=== PATIENT | male | born 1980 | race Caucasian/White ===

== ENCOUNTER 2019-01-07 17:42 | Inpatient (IN) | payer MEDICAID, SELFPAY ==
[2019-01-07 17:43] VITALS: BP 149/88; PULSE 76; RESP 18; TEMP 36.6; O2SAT 100; BMI 23.6
[2019-01-07 19:27] LABS: Basophil# 0.04 X10^3/uL; Basophil% 0.7 % (0-1); Eosinophil# 0.28 X10^3/uL; Hemoglobin 13.4 g/dl (13.0-16.5); Lymphocyte % 28.3 % (19-41); Mean Corp Hgb Conc 33.5 g/gl (32-36); Mean Corpuscular Volume 92.6 fL (80-94); Mean Platelet Vol. 9.7 fl (6.2-12.0); Monocyte# 0.69 X10^3/uL; Monocyte% 12.2 % (0-10); Neutrophil # 3.03 X10^3/uL (2.7-7.7); Neutrophil % 53.6 % (47-70); Platelet Count 233 K/mm3 (150-450); RBC Distribution Width CV 12.8 % (11.6-14.6); RBC Distribution Width SD 42.6 fl (35.1-43.9); Red Blood Count 4.32 M/mm3 (4.6-6.2); White Blood Count 5.7 K/mm3 (4.4-11.0)
[2019-01-07 19:30] LABS: POSITIVE COUNT NO; POSITIVE DIFFERENTIAL NO; POSITIVE MORPHOLOGY NO
[2019-01-07 19:35] LABS: Amphetamine Urine VISTA NEGATIVE (<1000 ng/mL); Barbiturate Urine VISTA NEGATIVE (< 200 ng/mL); Benzodiazepine Urine VISTA NEGATIVE (< 200 ng/mL); Cocaine Urine VISTA POSITIVE (< 300 ng/mL); Ecstacy Urine VISTA NEGATIVE (< 500 ng/mL); Methadone Urine VISTA NEGATIVE (< 300 ng/mL); PCP Urine VISTA NEGATIVE (< 25 ng/mL); THC Urine VISTA NEGATIVE (< 50 ng/mL); Vista UDS pH Range 7
[2019-01-07 19:37] LABS: ALB/GLOB Ratio 1.1 RATIO (0.9-2.4); AST(SGOT) 36 U/L (15-37); Alanine Aminotransfer ALT/SGPT 29 U/L (16-61); Albumin, Serum 3.8 g/dL (3.2-5.0); Alkaline Phosphatase 61 U/L (45-117); Anion Gap 8 (5-15); BUN 17 mg/dL (7-18); Calcium,Total 8.8 mg/dL (8.5-10.1); Chloride 104 mmol/L (98-107); Creatinine, Serum 0.94 mg/dL (0.70-1.30); EST Glomerular Filtration Rate 94 mL/min (>60); Est Glom Filt Rate - Afr Amer 114 mL/min (>60); Globulin 3.6 g/dL (2.2-4.2); Glucose 68 mg/dL (74-106); Potassium 3.6 mmol/L (3.5-5.1); Protein, Total 7.4 g/dL (6.4-8.2); Sodium Level 142 mmol/L (136-145)
[2019-01-07 21:12] VITALS: BP 144/82; PULSE 76; RESP 21; O2SAT 99
--- NOTE | 2019-01-07 21:45 | HP.PCM_ITS ---
Problem List (1) Opioid withdrawal Status: Acute History of Present Illness Date of Admission: 01/07/19 Chief Complaint: withdrawal symptoms The patient is a 38 year old M with a significant history of tobacco abuse; alcohol dependence who presented to the emergency department feeling that he is going through opioid withdrawal. Patient uses heroin and fentanyl. Reportedly he snorts and does not inject. Patient uses about 1-2 g daily. His last use was a day before presentation. He called the [facility] and he was accepted in to it. Subsequently he came to the emergency department. At the emergency department his CINA score was 15. Patient reported symptoms as sneezing; yawing; no body aches; abdominal pain; diaphoresis; chills; and watery eyes. He reported that about 2 years ago he went to an opioid withdrawal program at [facility]. Past Medical History Medical History: Medical History (Last Reviewed 01/08/19 @ 04:49 by Tony Umana MD) Opioid abuse F11.10 Allergies No Known Allergies Allergy (Verified 01/07/19 17:43) Home Medications: Ambulatory Orders Medication Instructions Recorded NK 01/07/19 Surgical History: herniorrhaphy, tonsillectomy Lives: With Family Smoking Status: Current every day smoker Tobacco Use: Cigarettes Alcohol: None Review of Systems Constitutional: Reports: Chills, Malaise, Fatigue. Denies: Fever, Weight Change Eyes: Reports: Drainage HEENT: Denies: Sinus Congestion, Sinus Drainage Cardiovascular: Denies: Chest Pain, Palpitations Respiratory: Denies: Cough, Shortness of breath at rest, Sputum production Gastrointestinal: Reports: Abdominal Pain. Denies: Nausea, Vomiting Genitourinary: Denies: Dysuria Musculoskeletal: Reports: Muscle pain Skin: Denies: Rash, Wounds Neurological: Denies: Numbness, Tingling, Focal weakness Psychiatric: Reports: Anxiety. Denies: Depression, Homicidal Ideations, Suicidal Ideations Hematologic/ Lymphatic: Denies: Easy Bruising, Easy Bleeding VTE Information - Inpt Only VTE Present on Admission: No VTE Mechan Device Prophylaxis: None VTE Pharm Prophylaxis ordered?: No Reason prophylaxis not ordered:: Treatment Not Indicated - Low risk. Ambulation Patient Problems: Active and Suspected Problems (Last Updated 01/08/19 @ 04:37 by Tony Umana MD) Opioid withdrawal (Acute) - Physical Exam General: Alert, Oriented x3, Cooperative HEENT: Atraumatic, PERRLA, EOMI, Normocephalic Neck: Supple, No JVD, Negative Carotid Bruits Lungs: Clear to auscultation, Normal air movement Cardiovascular: Regular rate, No murmurs Abdomen: Bowel Sounds Present, Soft, Non Tender Extremities: No edema, Capillary Refill Less than 3 Seconds Skin: No rashes, No breakdown Musculoskeletal: No Muscle Wasting Neurological: Neuro grossly intact Psych/Mental Status: Anxious Vital Signs Temp Pulse Resp BP Pulse Ox 98 F 76 21 H 144/82 H 99 01/07/19 17:43 01/07/19 21:12 01/07/19 21:12 01/07/19 21:12 01/07/19 21:12 Oxygen Delivery Method Room Air Weight: 78.925 kg Body Mass Index (BMI) 23.6 Laboratory Tests Past 24 Hrs 01/07/19 01/07/19 01/07/19 19:05 19:05 19:05 WBC 5.7 RBC 4.32 L Hgb 13.4 Hct 40.0 MCV 92.6 MCH 31.0 MCHC 33.5 RDW 12.8 RDW Differential 42.6 Plt Count 233 MPV 9.7 Immature Gran % (Auto) 0.200 Neut % (Auto) 53.6 Lymph % (Auto) 28.3 [place] % (Auto) 12.2 H Eos % (Auto) 5.0 Baso % (Auto) 0.7 Absolute Neuts (auto) 3.0 Absolute Lymphs (auto) 1.60 Total Counted Not Reportable Sodium 142 Potassium 3.6 Chloride 104 Carbon Dioxide 30.0 Anion Gap 8 BUN 17 Creatinine 0.94 Estim Creat Clear Calc 115.80 Est GFR (MDRD) Af Amer 114 Est GFR (MDRD) Non-Af 94 BUN/Creatinine Ratio 18.0 Glucose 68 L Calcium 8.8 Total Bilirubin 0.20 AST 36 ALT 29 Alkaline Phosphatase 61 Total Protein 7.4 Albumin 3.8 Globulin 3.6 Albumin/Globulin Ratio 1.1 Urine Opiates Screen Urine Methadone Screen Ur Barbiturates Screen Ur Phencyclidine Scrn Ur Amphetamines Screen U Methamphetamin-MDMA U Benzodiazepines Scrn Urine Cocaine Screen U Cannabinoids Screen Ur Drug Screen Comment Ethyl Alcohol 5.0 01/07/19 19:10 WBC RBC Hgb Hct MCV MCH MCHC RDW RDW Differential Plt Count MPV Immature Gran % (Auto) Neut % (Auto) Lymph % (Auto) [place] % (Auto) Eos % (Auto) Baso % (Auto) Absolute Neuts (auto) Absolute Lymphs (auto) Total Counted Sodium Potassium Chloride Carbon Dioxide Anion Gap BUN Creatinine Estim Creat Clear Calc Est GFR (MDRD) Af Amer Est GFR (MDRD) Non-Af BUN/Creatinine Ratio Glucose Calcium Total Bilirubin AST ALT Alkaline Phosphatase Total Protein Albumin Globulin Albumin/Globulin Ratio Urine Opiates Screen POSITIVE H Urine Methadone Screen NEGATIVE Ur Barbiturates Screen NEGATIVE Ur Phencyclidine Scrn NEGATIVE Ur Amphetamines Screen NEGATIVE U Methamphetamin-MDMA NEGATIVE U Benzodiazepines Scrn NEGATIVE Urine Cocaine Screen POSITIVE H U Cannabinoids Screen NEGATIVE Ur Drug Screen Comment Ethyl Alcohol Assessment/Plan All Active Problems (Last Updated 01/08/19 @ 04:37 by Tony Umana MD) Opioid withdrawal (Acute) The patient is a 38 year old M with a significant history of tobacco abuse; alcohol dependence who is going to opiate withdrawal Narcotic dependence and withdrawal. Placed on Opioid withdrawal protocol with buprenorphine; Supportive treatment with clonidine; Bentyl; hydroxyzine; methocarbamol and pramipexole. Counselled. [facility] consult. Tobacco abuse Counseled Nicotine patch ordered. DVT prophylaxis Low risk Ambulation. Code Visit Inpatient E&M: 78252 Init Hosp L3
[2019-01-07 23:13] VITALS: BP 128/77; PULSE 66; PULSE 67; RESP 12; RESP 14; O2SAT 97; O2SAT 98
--- NOTE | 2019-01-07 23:14 | ED.DCSUM_ITS ---
- ER Visit Summary Date of Service: 01/07/19 Chief Complaint: Detox History of Present Illness: The patient is a 38 M who is requesting detox from opioids. He snorts heroin and fentanyl. Reports withdrawal symptoms. Physical Examination: Afebrile and vital signs unremarkable. Alert and oriented. No acute distress. Heart regular. Lungs clear. Skin normal. Test Results: CBC, metabolic panel, alcohol negative. Opioids and cocaine positive. Emergency Department Course and Treatment: Patient has a CINA score of 15. He has no other psychiatric symptoms like suicidality. No other medical complaints. There is a detox bed available. The hospitalist was contacted for admission. Treatment Plan: As above Disposition: Admission Impression: 1. Opioid withdrawal This note was generated with [employer] dictation software. It may contain incorrect words, spelling, and punctuation that were not noted in review of the chart prior to signing ED Disposition - Plan for ED Patient: Referrals: Care Physician,No Primary [Primary Care Provider] -
[2019-01-07 23:45] VITALS: BP 135/97; PULSE 65; RESP 18; TEMP 36.3
[2019-01-07 23:48] VITALS: BMI 23.2
[2019-01-07 23:53] VITALS: BMI 23.2
[2019-01-08] MEDS: Buprenorphine HCl 2 MG TAB.SUBL SL ×4 (00:35→23:52)
[2019-01-08 04:27] VITALS: BP 123/61; PULSE 59; RESP 16; TEMP 36.9
[2019-01-08] MEDS: Dicyclomine 10 MG Capsule 20 MG PO (04:31)
[2019-01-08] MEDS: hydrOXYzine PAM 25 MG Capsule 50 MG PO ×2 (04:32→15:11)
[2019-01-08] MEDS: Pramipexole Di-HCl 0.25 MG Tablet PO (04:32)
--- NOTE | 2019-01-08 05:15 | NURSING ---
Message left at the [facility] office at [facility] in regards to consultation.
[2019-01-08 09:00] VITALS: BP 104/57; PULSE 56; RESP 18; TEMP 36.8
[2019-01-08] MEDS: Methocarbamol 750 MG Tablet PO (09:07)
[2019-01-08] MEDS: cloNIDine HCl 0.1 MG Tablet PO ×2 (09:08→15:11)
[2019-01-08 11:45] VITALS: O2SAT 97
[2019-01-08 15:06] VITALS: BP 123/67; PULSE 67; RESP 16; TEMP 36.6
--- NOTE | 2019-01-08 16:41 | CHAPLAIN ---
Type of Pastoral Visit _x__ Initial Visit ___ Follow-up Visit ___ On-call Visit ___ General Patient Visit ___ Spiritual Assessment ___ Family Conference ___ Bereavement ___ Rapid Response ___ Code Blue ___ Other (describe below) Pastoral Care Referral From _x__ Patient ___ Family ___ Nurse ___ Physician ___ Powder Carrier ___ Puppet Engineer ___ Other (describe below) Sacrament/Intervention _x__ Active listening ___ Anointing ___ Evangelical ___ Bereavement ___ Communion _x__ Alvina exploration ___ _x__ Life review _x__ Prayer ___ Reconciliation ___ Sacrament of Sick _x__ Supportive presence ___ Wedding ___ Other (describe below) Pastoral Comments
--- NOTE | 2019-01-08 18:22 | PCM.PROGNOTE ---
Patient Problems: Active and Suspected Problems (Last Reviewed 01/08/19 @ 04:49 by Tony Umana MD) Opioid withdrawal (Acute) Subjective: He was seen and examined today, he states he is feeling better, does not complain of any increased anxiety or tremor. - Physical Exam General: Alert, Oriented x3, Cooperative, No apparent distress, Well developed, Well nourished HEENT: Atraumatic, PERRLA, EOMI, Normocephalic Oral: Moist Mucosa Neck: Supple, No JVD, Negative Carotid Bruits, No Nuchal Rigidity, Trachea Midline, Thyroid Normal Size and Texture Lungs: Clear to auscultation, Normal air movement, No rhonchi, No wheeze, No rales Cardiovascular: Regular rate, Regular Rhythm, Normal S1, Normal S2, No murmurs, No Ectopic Activity, PMI Normal, No rub noted, No Gallop Abdomen: Bowel Sounds Present, Soft, Non Tender, Non-Distended Extremities: No clubbing, No cyanosis, No edema, Capillary Refill Less than 3 Seconds Skin: No rashes, No breakdown Musculoskeletal: No Tenderness to Palpation of Joints or Extremities Neurological: Cranial nerves II-XII grossly intact, Neuro grossly intact, Sensory exam intact to light touch and pain, Coordination normal Psych/Mental Status: Normal Affect, Appropriate, Alert and oriented to time, place, person, mood and affect Vital Signs Temp Pulse Resp BP Pulse Ox 97.8 F 67 16 123/67 H 97 01/08/19 15:06 01/08/19 15:06 01/08/19 15:06 01/08/19 15:06 01/08/19 11:45 Oxygen Delivery Method Room Air Weight: 77.7 kg Body Mass Index (BMI) 23.2 Intake and Output for Last 24 Hours 01/06/19 01/07/19 01/08/19 23:59 23:59 23:59 Intake Total 817 / 817 Balance 817 / 817 Laboratory Tests Past 24 Hrs 01/07/19 01/07/19 01/07/19 19:05 19:05 19:05 WBC 5.7 RBC 4.32 L Hgb 13.4 Hct 40.0 MCV 92.6 MCH 31.0 MCHC 33.5 RDW 12.8 RDW Differential 42.6 Plt Count 233 MPV 9.7 Immature Gran % (Auto) 0.200 Neut % (Auto) 53.6 Lymph % (Auto) 28.3 [place] % (Auto) 12.2 H Eos % (Auto) 5.0 Baso % (Auto) 0.7 Absolute Neuts (auto) 3.0 Absolute Lymphs (auto) 1.60 Total Counted Not Reportable Sodium 142 Potassium 3.6 Chloride 104 Carbon Dioxide 30.0 Anion Gap 8 BUN 17 Creatinine 0.94 Estim Creat Clear Calc 115.80 Est GFR (MDRD) Af Amer 114 Est GFR (MDRD) Non-Af 94 BUN/Creatinine Ratio 18.0 Glucose 68 L Calcium 8.8 Total Bilirubin 0.20 AST 36 ALT 29 Alkaline Phosphatase 61 Total Protein 7.4 Albumin 3.8 Globulin 3.6 Albumin/Globulin Ratio 1.1 Urine Opiates Screen Urine Methadone Screen Ur Barbiturates Screen Ur Phencyclidine Scrn Ur Amphetamines Screen U Methamphetamin-MDMA U Benzodiazepines Scrn Urine Cocaine Screen U Cannabinoids Screen Ur Drug Screen Comment Ethyl Alcohol 5.0 01/07/19 19:10 WBC RBC Hgb Hct MCV MCH MCHC RDW RDW Differential Plt Count MPV Immature Gran % (Auto) Neut % (Auto) Lymph % (Auto) [place] % (Auto) Eos % (Auto) Baso % (Auto) Absolute Neuts (auto) Absolute Lymphs (auto) Total Counted Sodium Potassium Chloride Carbon Dioxide Anion Gap BUN Creatinine Estim Creat Clear Calc Est GFR (MDRD) Af Amer Est GFR (MDRD) Non-Af BUN/Creatinine Ratio Glucose Calcium Total Bilirubin AST ALT Alkaline Phosphatase Total Protein Albumin Globulin Albumin/Globulin Ratio Urine Opiates Screen POSITIVE H Urine Methadone Screen NEGATIVE Ur Barbiturates Screen NEGATIVE Ur Phencyclidine Scrn NEGATIVE Ur Amphetamines Screen NEGATIVE U Methamphetamin-MDMA NEGATIVE U Benzodiazepines Scrn NEGATIVE Urine Cocaine Screen POSITIVE H U Cannabinoids Screen NEGATIVE Ur Drug Screen Comment Ethyl Alcohol Medical Necessity - Tobacco Use Smoking Status: Current every day smoker Tobacco Use: Cigarettes Assessment/Plan All Active Problems (Last Reviewed 01/08/19 @ 04:49 by Tony Umana MD) Opioid withdrawal (Acute) #1 acute opiate withdrawal-continue present medications, patient is stable #2 heroin addiction Code Visit Inpatient E&M: 66238 Subs Hosp L2
[2019-01-08 21:10] VITALS: BP 111/67; PULSE 60; RESP 16; TEMP 36.6
[2019-01-09 03:53] VITALS: BP 93/57; PULSE 55; RESP 16; TEMP 36.3
[2019-01-09] MEDS: Buprenorphine HCl 2 MG TAB.SUBL SL ×2 (08:45→16:08)
[2019-01-09 08:48] VITALS: BP 85/59; PULSE 54; RESP 16; TEMP 36.4
[2019-01-09] MEDS: Pramipexole Di-HCl 0.25 MG Tablet PO (09:13)
[2019-01-09] MEDS: hydrOXYzine PAM 25 MG Capsule 50 MG PO ×2 (09:13→16:08)
--- NOTE | 2019-01-09 10:32 | NEWVISION ---
Patient will be going to the [facility] in [place], [place]. [facility] is a inpatient male residential treatment program. [facility] guest relations representative will be tranporting patient from hospital to facility post discharge.
[2019-01-09 16:05] VITALS: BP 121/65; PULSE 72; RESP 16; TEMP 36.8
[2019-01-09] MEDS: cloNIDine HCl 0.1 MG Tablet PO (16:08)
--- NOTE | 2019-01-09 19:33 | PCM.PROGNOTE ---
Patient Problems: Active and Suspected Problems (Last Reviewed 01/08/19 @ 04:49 by Tony Umana MD) Opioid withdrawal (Acute) Subjective: Patient was seen and examined today, he is worried that he will not be able to follow through with his outpatient detox program due to the fact he is not allowed to take any medication such as Subutex. I told him I did not have an answer for this problem. - Physical Exam General: Alert, Oriented x3, Cooperative, No apparent distress, Well developed HEENT: Atraumatic, PERRLA, EOMI, Normocephalic Oral: Moist Mucosa Neck: Supple, No Nuchal Rigidity, Trachea Midline, Thyroid Normal Size and Texture Lungs: Clear to auscultation, Normal air movement, No rhonchi, No wheeze, No rales Cardiovascular: Regular rate, Regular Rhythm, Normal S1, Normal S2, No murmurs, No Ectopic Activity Abdomen: Bowel Sounds Present, Soft, Non Tender, Non-Distended, No hernias noted Extremities: No clubbing, No cyanosis, No edema, Capillary Refill Less than 3 Seconds Skin: No rashes, No breakdown Musculoskeletal: No Tenderness to Palpation of Joints or Extremities Neurological: Cranial nerves II-XII grossly intact, Neuro grossly intact, Sensory exam intact to light touch and pain, Coordination normal Psych/Mental Status: Normal Affect, Appropriate, Alert and oriented to time, place, person, mood and affect Vital Signs Temp Pulse Resp BP Pulse Ox 98.3 F 72 16 121/65 H 97 01/09/19 16:05 01/09/19 16:05 01/09/19 16:05 01/09/19 16:05 01/08/19 11:45 Oxygen Delivery Method Room Air Weight: 77.7 kg Body Mass Index (BMI) 23.2 Intake and Output for Last 24 Hours 01/07/19 01/08/19 01/09/19 23:59 23:59 23:59 Intake Total 1297 / 1297 480 / 480 Balance 1297 / 1297 480 / 480 Medical Necessity - Tobacco Use Smoking Status: Current every day smoker Tobacco Use: Cigarettes Assessment/Plan All Active Problems (Last Reviewed 01/08/19 @ 04:49 by Tony Umana MD) Opioid withdrawal (Acute) #1 acute opiate withdrawal-continue present medications, patient is stable, the plan is for discharge in the morning if he is stable to an outpatient facility. #2 heroin addiction Code Visit Inpatient E&M: 96365 Subs Hosp L2
[2019-01-09 20:22] VITALS: BP 95/54; PULSE 66; RESP 16; TEMP 36.4
[2019-01-10 02:37] VITALS: BP 103/62; PULSE 53; RESP 16; TEMP 36.3
[2019-01-10] MEDS: Buprenorphine HCl 2 MG TAB.SUBL SL ×2 (03:21→15:29)
[2019-01-10 07:59] VITALS: O2SAT 97
--- NOTE | 2019-01-10 08:42 | NURSING ---
spoke with Morenita from [email or web address], asked if we need to call [facility] when pt is discharged, she stated that their termite control service representative was planning on being here around 1700 after last dose of subutex. if there are any issues or questions though we can call Zuleyka at [phone]
[2019-01-10 09:32] VITALS: BP 111/79; PULSE 73; RESP 16; TEMP 36.8
--- NOTE | 2019-01-10 09:41 | NURSING ---
Allowed patient to use desk phone to call friend.
--- NOTE | 2019-01-10 09:51 | DCINST_ITS ---
- Discharge Diagnoses Current Active Problems: Current Active and Chronic Problems (Last Reviewed 01/08/19 @ 04:49 by Tony Umana MD) Opioid withdrawal (Acute) You will use the following diet at home:: No restrictions Your food should be the consistency of: Regular Your liquids should be the consistency of: Regular/Thin Discharge Activity: Return to Normal Activity Weight Bearing Status: Weight bearing as tolerated Allergies/Adverse Reactions: Allergies No Known Allergies Allergy (Verified 01/07/19 23:52) Medications to take at Discharge NK 01/07/19 Primary Care Physician: Care Physician,No Primary [Primary Care Provider] - Please follow up with your Primary Care Physician in: 1 week Test Results: Test results from this visit will be discussed in further detail at your follow- up appointment, if applicable. Proposed Discharge Date: 01/10/19
--- NOTE | 2019-01-10 09:52 | DS.PCM_ITS ---
Discharge Date and Diagnosis - Problem List Patient Problems: Active and Suspected Problems (Last Reviewed 01/08/19 @ 04:49 by Tony Umana MD) Opioid withdrawal (Acute) Date of Admission: 01/07/19 Date of Discharge: 01/10/19 - Primary Discharge Diagnosis Active and Suspected Problems (Last Reviewed 01/08/19 @ 04:49 by Tony Umana MD) Opioid withdrawal (Acute) Hospital Course and Treatment Consultations 01/08/19 04:34 Consult: SCADA Access Routine Consulting Provider: Consulted Physician Type:: Other * Specify below * Reason for consult:: opioid withdrawal Operations: None Procedures: None Summary of Care Provided: The patient is a 38 year old M with past medical history of alcohol, opiate and nicotine dependence was admitted for opiate withdrawal. He had used heroin and fentanyl used about 1-2 g daily. He was admitted with a Synvisc over 15 and was managed for acute opioid withdrawal. He was put on detox protocol as per [facility]ADA Access protocol. Patient remained stable and successfully completed 3 days of acute detox with buprenorphine. Was also treated with nicotine patch for nicotine dependence. He was discharged to the [facility] inpatient rehab center in [place] on 01/10/2019. He is follow-up with his primary care doctor. Patient seen and examined prior to discharge. He had no complaints and felt well. He also was otherwise negative. Labs and vitals reviewed. o/e: Vital Signs Height 6 ft Weight: 171 lb 4.787 oz Weight in Pounds 171.3 lbs Pulse Ox 97 Temperature 98.3 F Pulse Rate 73 Respiratory Rate 16 Blood Pressure 111/79 [] General: Alert, Oriented x3, Cooperative, No apparent distress HEENT: Atraumatic, PERRLA, EOMI, Normocephalic Oral: Moist Mucosa Neck: Supple Lungs: Clear to auscultation, Normal air movement, No rhonchi, No wheeze, No rales Cardiovascular: Regular rate, Regular Rhythm, Normal S1, Normal S2, No murmurs, Abdomen: Bowel Sounds Present, Soft, Non Tender, Non-Distended, No hernias noted Extremities: No clubbing, No cyanosis, No edema, Capillary Refill Less than 3 Seconds Skin: No rashes, No breakdown Musculoskeletal: No Tenderness to Palpation of Joints or Extremities Neurological: Cranial nerves II-XII grossly intact, Neuro grossly intact, Sensory exam intact to light touch and pain, Psych/Mental Status: Normal Affect, Appropriate, Alert and oriented to time, place, person, mood and affect Plan as detailed above. Patient Problems: Active and Suspected Problems (Last Reviewed 01/08/19 @ 04:49 by Tony Umana MD) Opioid withdrawal (Acute) - Physical Exam Vital Signs Temp Pulse Resp BP Pulse Ox 98.3 F 73 16 111/79 97 01/10/19 09:32 01/10/19 09:32 01/10/19 09:32 01/10/19 09:32 01/10/19 07:59 Oxygen Delivery Method Room Air Weight: 171 lb 4.787 oz Body Mass Index (BMI) 23.2 Intake and Output for Last 24 Hours 01/08/19 01/09/19 01/10/19 23:59 23:59 23:59 Intake Total 1297 / 1297 960 / 960 300 / 300 Balance 1297 / 1297 960 / 960 300 / 300 Discharge Activity: Return to Normal Activity Weight Bearing Status: Weight bearing as tolerated Home Medications: Medications to take at Discharge NK 01/07/19 Primary Care Physician: Care Physician,No Primary [Primary Care Provider] - Please follow up with your Primary Care Physician in: 1 week Disposition: Home Minutes spent on discharge:: 40 Patient Condition:: Stable Medical Necessity - Tobacco Use Smoking Status: Current every day smoker Tobacco Use: Cigarettes Meaningful Use Info Meaningful Use Diagnoses (Choose all that apply): None applicable Code Visit Inpatient E&M: 35636 Disch Hosp
--- NOTE | 2019-01-10 09:59 | NURSING ---
Spoke with Zuleyka from [facility]. She states that patient called and stated he would have a friend transport him to the facility. I then spoke to patient who confirmed this. The patient still plans to discharge following last subutex dose.
[2019-01-10 15:30] VITALS: BP 127/69; PULSE 60; RESP 12; TEMP 36.8
== END 2019-01-10 15:32 | disposition home or self-care (01) | DRG 773 ==
LOC: ED 21:18 → MS2 23:18
PROVIDERS: Admitting Provider Hospitalist; Emergency Provider Emergency Medicine; Visit Provider Student in an Organized Health Care Education/Training Program
DX: F11.23 Opioid dependence with withdrawal (principal); F17.210 Nicotine dependence, cigarettes, uncomplicated
CPT/HCPCS: 80048; 80053; 80307; 80320; 85025; 99281; G0480

== ENCOUNTER 2019-02-23 17:08 | Inpatient (IN) | payer MEDICAID, SELFPAY ==
--- NOTE | 2019-02-23 17:20 | PCM.HP.STD ---
Problem List (1) Opioid withdrawal Status: Acute (2) Fentanyl use disorder, severe Status: Chronic (3) Crack cocaine use Status: Chronic (4) Tobacco use Status: Chronic (5) Anxiety Status: Chronic History of Present Illness Date of Admission: 02/23/19 Chief Complaint: Acute Opiate Withdrawal The patient is a 38 y/o M w/ PMHx: Tobacco use, Anxiety, Ongoing Heroin (snorted, 1-3 gm daily) and Crack usage (smoked, 3x/weekly) who recently performed inpatient treatment and prior to transition to residential program used again who presents to the [facility] at [facility] on 02/23/19 w/ noted opiate withdrawal onset starting day of presentation following last dose the evening prior with abdominal pain/cramping, generalized body aches and pains, rhinorrhea, fatigue, restless leg, sweating, yawning with notable agitation upon initial evaluation, talking extremely fast, rocking in his chair. Patient interested in attaining clean status. Discussed most recent presentation and fact that usage started again immediately upon transition to inpatient setting from [facility] treatment. Patient requesting longer treatment program from [facility] treatment with direct transition from hospital to avoid this again. Past Medical History Past Medical History (Chronic Problems): Chronic Problems (Last Reviewed 01/08/19 @ 04:49 by Tony Umana MD) Fentanyl use disorder, severe (Chronic) Crack cocaine use (Chronic) Tobacco use (Chronic) Anxiety (Chronic) Medical History: Medical History (Last Reviewed 01/08/19 @ 04:49 by Tony Umana MD) Opioid abuse F11.10 Allergies No Known Allergies Allergy (Verified 01/07/19 23:52) Home Medications: Ambulatory Orders Medication Instructions Recorded NK 01/07/19 Surgical History: - - Tonsillectomy, right inguinal hernia repair. Psychiatric History: Anxiety Lives: Homeless Smoking Status: Current every day smoker - Currently smoking at least 1 to 2 pack/day Ana tobacco usage. Tobacco Use: Cigarettes Alcohol: None Drugs: - - Patient notes ongoing heroin (snorted) as well as crack usage (smoked). - *Family History Maternal History Items: - - Patient notes a maternal history of pancreatic cancer. Paternal History Items: - - Patient states he does not know his paternal family history. Review of Systems Constitutional: Reports: Chills, Malaise, Weakness, Fatigue. Denies: Fever, Weight Change HEENT: Reports: Nasal Congestion, Post Nasal Drip, Sinus Congestion. Denies: Head Aches, Sinus Drainage Cardiovascular: Denies: Chest Pain, Palpitations Respiratory: Denies: Cough, Shortness of breath at rest, Sputum production Gastrointestinal: Reports: Abdominal Pain, Nausea, Vomiting Genitourinary: Denies: Dysuria Musculoskeletal: Reports: Joint Pain, Muscle pain. Denies: Joint Tenderness Skin: Denies: Rash, Wounds Neurological: Denies: Numbness, Tingling, Focal weakness Psychiatric: Reports: Anxiety. Denies: Depression, Homicidal Ideations, Suicidal Ideations Hematologic/ Lymphatic: Denies: Easy Bruising, Easy Bleeding VTE Information - Inpt Only VTE Present on Admission: No VTE Mechan Device Prophylaxis: None VTE Pharm Prophylaxis ordered?: No Reason prophylaxis not ordered:: Treatment Not Indicated Subjective: Seated upright in the chair, no acute distress, very agitated, rocking, talking extremely fast, sniffling, tearing eyes. Objective: Physical Examination: General: awake, alert, oriented x 3 and cooperative, seated upright, yawning, sniffling, tearing eyes during examination, talking extremely fast, mildly agitated, rocking. Skin: normal color, turgor, no icterus, cyanosis. HEENT: AT/NC, EOMI, PERRLA, dry MM, no carotid bruits or JVD noted. Lungs: CTA bilaterally, moderate effort, moderate decrease BL bases, no rales, ronchi or wheezing. Heart: Mildly tachycardic with regular rhythm; no gallop, rub audible. Abdomen: soft, NTTP, ND, normal BS, no HSM. Extremities: no cyanosis, clubbing, or edema. Neurological: patient awake, alert, oriented x 3; cognitive function intact; pupils equally reactive to light and accomodation; cranial nerves II-XII grossly normal, moving all 4 extremities, no focal deficits, strength mildly globally decreased secondary to acute presentation. Psychiatric: affect appears agitated, restless, talking extremely fast, no acute evidence of depressive feelings. - Physical Exam Body Mass Index (BMI) 23.2 Assessment/Plan All Active Problems (Last Reviewed 01/08/19 @ 04:49 by Tony Umana MD) Opioid withdrawal (Acute) The patient is a 38 y/o M w/ PMHx: Tobacco use, Anxiety, Ongoing Heroin (snorted, 1-3 gm daily) and Crack usage (smoked, 3x/weekly) who recently performed inpatient treatment and prior to transition to residential program used again who presents to the [facility] at [facility] on 02/23/19 w/ noted opiate withdrawal. (1) Acute Opiate Withdrawal: Will admit to [facility], obtain routine labs including CBC, CMP, urine for drug screen and will initiate and continue on [facility] service protocol with tapering course of Subutex, as needed Seroquel, Librium, Sinemet, Catapres, Bentyl, Vistaril, IV fluids, IV antiemetics, Tylenol as needed for pain. Once patient clinically improved and completion of taper nearing will plan [facility] assistance for transition to next level of rehabilitation care. (2) Polysubstance Abuse: Denies IVDA; however, notable history, will obtain HIV and hepatitis panel. Patient currently not candidate for hep C treatment currently as needs to be clean, sober x 6 months, documented attendance NA or AA meetings, counseling and ongoing negative drug screens. (3) Tobacco Abuse: Encouraged cessation, inpatient consultation per RT, NR if desired. (4) Anxiety: Not on regimen, describes himself as mildly OCD and also hypochondriac. Patient is not on any regimen, encourage psychiatric evaluation and consideration of treatment. (5) DVT Prophylaxis: Low risk, ambulation. Code Visit Inpatient E&M: 58501 Init Hosp L3
[2019-02-23 17:22] VITALS: BMI 24.1
--- NOTE | 2019-02-23 17:29 | HP.PCM_ITS ---
Problem List (1) Opioid withdrawal Status: Acute (2) Fentanyl use disorder, severe Status: Chronic (3) Crack cocaine use Status: Chronic (4) Tobacco use Status: Chronic (5) Anxiety Status: Chronic History of Present Illness Date of Admission: 02/23/19 Chief Complaint: Acute Opiate Withdrawal The patient is a 38 y/o M w/ PMHx: Tobacco use, Anxiety, Ongoing Heroin (snorted, 1-3 gm daily) and Crack usage (smoked, 3x/weekly) who recently performed inpatient treatment and prior to transition to residential program used again who presents to the [facility] at [facility] on 02/23/19 w/ noted opiate withdrawal onset starting day of presentation following last dose the evening prior with abdominal pain/cramping, generalized body aches and pains, rhinorrhea, fatigue, restless leg, sweating, yawning with notable agitation upon initial evaluation, talking extremely fast, rocking in his chair. Patient interested in attaining clean status. Discussed most recent presentation and fact that usage started again immediately upon transition to inpatient setting from [facility] treatment. Patient requesting longer treatment program from [facility] treatment with direct transition from hospital to avoid this again. Past Medical History Past Medical History (Chronic Problems): Chronic Problems (Last Reviewed 01/08/19 @ 04:49 by Tony Umana MD) Fentanyl use disorder, severe (Chronic) Crack cocaine use (Chronic) Tobacco use (Chronic) Anxiety (Chronic) Medical History: Medical History (Last Reviewed 01/08/19 @ 04:49 by Tony Umana MD) Opioid abuse F11.10 Allergies No Known Allergies Allergy (Verified 01/07/19 23:52) Home Medications: Ambulatory Orders Medication Instructions Recorded NK 01/07/19 Surgical History: - - Tonsillectomy, right inguinal hernia repair. Psychiatric History: Anxiety Lives: Homeless Smoking Status: Current every day smoker - Currently smoking at least 1 to 2 pack/day Ana tobacco usage. Tobacco Use: Cigarettes Alcohol: None Drugs: - - Patient notes ongoing heroin (snorted) as well as crack usage (smoked). - *Family History Maternal History Items: - - Patient notes a maternal history of pancreatic cancer. Paternal History Items: - - Patient states he does not know his paternal family history. Review of Systems Constitutional: Reports: Chills, Malaise, Weakness, Fatigue. Denies: Fever, Weight Change HEENT: Reports: Nasal Congestion, Post Nasal Drip, Sinus Congestion. Denies: He ad Aches, Sinus Drainage Cardiovascular: Denies: Chest Pain, Palpitations Respiratory: Denies: Cough, Shortness of breath at rest, Sputum production Gastrointestinal: Reports: Abdominal Pain, Nausea, Vomiting Genitourinary: Denies: Dysuria Musculoskeletal: Reports: Joint Pain, Muscle pain. Denies: Joint Tenderness Skin: Denies: Rash, Wounds Neurological: Denies: Numbness, Tingling, Focal weakness Psychiatric: Reports: Anxiety. Denies: Depression, Homicidal Ideations, Suicidal Ideations Hematologic/ Lymphatic: Denies: Easy Bruising, Easy Bleeding VTE Information - Inpt Only VTE Present on Admission: No VTE Mechan Device Prophylaxis: None VTE Pharm Prophylaxis ordered?: No Reason prophylaxis not ordered:: Treatment Not Indicated Subjective: Seated upright in the chair, no acute distress, very agitated, rocking, talking extremely fast, sniffling, tearing eyes. Objective: Physical Examination: General: awake, alert, oriented x 3 and cooperative, seated upright, yawning, sniffling, tearing eyes during examination, talking extremely fast, mildly agitated, rocking. Skin: normal color, turgor, no icterus, cyanosis. HEENT: AT/NC, EOMI, PERRLA, dry MM, no carotid bruits or JVD noted. Lungs: CTA bilaterally, moderate effort, moderate decrease BL bases, no rales, ronchi or wheezing. Heart: Mildly tachycardic with regular rhythm; no gallop, rub audible. Abdomen: soft, NTTP, ND, normal BS, no HSM. Extremities: no cyanosis, clubbing, or edema. Neurological: patient awake, alert, oriented x 3; cognitive function intact; pupils equally reactive to light and accomodation; cranial nerves II-XII grossly normal, moving all 4 extremities, no focal deficits, strength mildly globally decreased secondary to acute presentation. Psychiatric: affect appears agitated, restless, talking extremely fast, no acute evidence of depressive feelings. - Physical Exam Body Mass Index (BMI) 23.2 Assessment/Plan All Active Problems (Last Reviewed 01/08/19 @ 04:49 by Tony Umana MD) Opioid withdrawal (Acute) The patient is a 38 y/o M w/ PMHx: Tobacco use, Anxiety, Ongoing Heroin (snorted, 1-3 gm daily) and Crack usage (smoked, 3x/weekly) who recently performed inpatient treatment and prior to transition to residential program used again who presents to the [facility] at [facility] on 02/23/19 w/ noted opiate withdrawal. (1) Acute Opiate Withdrawal: Will admit to [facility], obtain routine labs including CBC, CMP, urine for drug screen and will initiate and continue on [facility] service protocol with tapering course of Subutex, as needed Seroquel, Librium, Sinemet, Catapres, Bentyl, Vistaril, IV fluids, IV antiemetics, Tylenol as needed for pain. Once patient clinically improved and completion of taper nearing will plan [facility] assistance for transition to next level of rehabilitation care. (2) Polysubstance Abuse: Denies IVDA; however, notable history, will obtain HIV and hepatitis panel. Patient currently not candidate for hep C treatment currently as needs to be clean, sober x 6 months, documented attendance NA or AA meetings, counseling and ongoing negative drug screens. (3) Tobacco Abuse: Encouraged cessation, inpatient consultation per RT, NR if desired. (4) Anxiety: Not on regimen, describes himself as mildly OCD and also hypochondriac. Patient is not on any regimen, encourage psychiatric evaluation and consideration of treatment. (5) DVT Prophylaxis: Low risk, ambulation. Code Visit Inpatient E&M: 45631 Init Hosp L3
[2019-02-23 17:36] VITALS: BMI 24.0
[2019-02-23 17:50] VITALS: BP 127/86; PULSE 72; RESP 16; TEMP 36.8
[2019-02-23] MEDS: Methocarbamol 750 MG Tablet PO (18:11)
[2019-02-23] MEDS: Buprenorphine HCl 2 MG TAB.SUBL SL (18:12)
[2019-02-23] MEDS: Ibuprofen 600 MG Tablet PO (18:12)
[2019-02-23] MEDS: Dicyclomine 10 MG Capsule 20 MG PO (18:12)
[2019-02-23 18:30] LABS: Amphetamine Urine VISTA NEGATIVE (<1000 ng/mL); Barbiturate Urine VISTA NEGATIVE (< 200 ng/mL); Benzodiazepine Urine VISTA NEGATIVE (< 200 ng/mL); Cocaine Urine VISTA POSITIVE (< 300 ng/mL); Ecstacy Urine VISTA NEGATIVE (< 500 ng/mL); Methadone Urine VISTA NEGATIVE (< 300 ng/mL); PCP Urine VISTA NEGATIVE (< 25 ng/mL); THC Urine VISTA NEGATIVE (< 50 ng/mL); Vista UDS pH Range 5
[2019-02-23 18:57] LABS: Absolute Lymphocyte Count 1.84 X10^3/ul (0.83-4.51); Absolute Neutrophil Count 2.6 X10^3/uL (2.0-7.7); Basophil# 0.06 X10^3/uL; Basophil% 1.1 % (0-1); Eosinophil# 0.34 X10^3/uL; Eosinophils% 6.1 % (0-5); Hematocrit 38.7 % (40-54); Hemoglobin 13.2 g/dl (13.0-16.5); Lymphocyte # 1.84 X10^3/ul (4.0); Mean Corp Hgb Conc 34.1 g/gl (32-36); Mean Corpuscular Hgb 30.8 pg (27.0-32.0); Mean Corpuscular Volume 90.4 fL (80-94); Monocyte# 0.71 X10^3/uL; Monocyte% 12.7 % (0-10); Neutrophil # 2.62 X10^3/uL (2.7-7.7); Neutrophil % 47.1 % (47-70); Platelet Count 210 K/mm3 (150-450); RBC Distribution Width SD 42.5 fl (35.1-43.9); Red Blood Count 4.28 M/mm3 (4.6-6.2); White Blood Count 5.6 K/mm3 (4.4-11.0)
[2019-02-23 18:58] LABS: Differential Indicated SCAN CRITERIA MET; POSITIVE COUNT NO; POSITIVE DIFFERENTIAL NO; POSITIVE MORPHOLOGY YES
[2019-02-23 19:09] LABS: Differential Comment SCANNED
[2019-02-23 19:12] LABS: ALB/GLOB Ratio 1.2 RATIO (0.9-2.4); AST(SGOT) 23 U/L (15-37); Alanine Aminotransfer ALT/SGPT 20 U/L (16-61); Albumin, Serum 4.1 g/dL (3.2-5.0); Alkaline Phosphatase 65 U/L (45-117); Anion Gap 6 (5-15); BUN 18 mg/dL (7-18); BUN/Creat Ratio 17.1 RATIO (10-20); Calcium,Total 8.7 mg/dL (8.5-10.1); Chloride 107 mmol/L (98-107); Creatinine, Serum 1.05 mg/dL (0.70-1.30); EST Glomerular Filtration Rate 83 mL/min (>60); Est Glom Filt Rate - Afr Amer 101 mL/min (>60); Globulin 3.4 g/dL (2.2-4.2); Glucose 113 mg/dL (74-106); Potassium 3.9 mmol/L (3.5-5.1); Protein, Total 7.5 g/dL (6.4-8.2); Sodium Level 141 mmol/L (136-145)
[2019-02-23 20:47] LABS: HIV - WCH Non-Reactive (Nonreactive)
[2019-02-23 21:15] VITALS: BP 116/65; PULSE 59; RESP 16; TEMP 36.6; O2SAT 96
[2019-02-23] MEDS: traZODone 50 MG Tablet PO (21:17)
[2019-02-23 21:42] VITALS: BP 116/65; PULSE 59; RESP 16; TEMP 36.6
[2019-02-24] VITALS (9 sets, daily range): BP systolic 102–126; BP diastolic 62–75; PULSE 44–58; RESP 16–18; TEMP 36.4–36.8; O2SAT 99–100
[2019-02-24] MEDS: Buprenorphine HCl 2 MG TAB.SUBL SL ×3 (02:29→17:32)
--- NOTE | 2019-02-24 06:56 | PCM.PROGNOTE ---
Subjective: The patient is a 38-year-old male with a past medical history of tobacco dependence, anxiety, opiate dependence (snorts 1-3 GM daily) and crack usage presented to the [facility] at [facility] on 02/23/2019 requesting inpatient admission for medical stabilization for acute opiate withdrawal. He had recently had inpatient treatment at [facility] from 01/07/2019 to 01/10/2019 for acute opiate withdrawal. He was transitioned to an inpt program in [facility] but spent only 1 day there. Tells me there were bed bugs in the house and he did not like it there. At the time of admission he complained of abdominal cramping, generalized body aches and pains, rhinorrhea, fatigue, restless leg, sweating and yawning. CBC and CMP were unremarkable. Urine tox screen was positive for opiates and cocaine. HIV is nonreactive and the hepatitis panel is pending. He was admitted to the hospital and the [facility] protocol for acute opiate withdrawal was initiated. He was started on a buprenorphine taper. No diarrhea, N/V today. He has rhinorrhea. He feels tired and wants to go back to sleep. Objective: PHYSICAL EXAM: GENERAL: alert, oriented X 3, Cooperative, NAD ORAL: moist mucosa, no mucosal lesions NECK: No JVD, supple, trachea midline LUNGS: CTA, symmetric chest expansion HEART: RRR, Normal S1 and S2, no rub, no gallop ABDOMEN: soft, NT, ND, BS present, no guarding with palpation EXTREMITIES: no edema, no cyanosis, no calf tenderness SKIN: No rashes, no breakdown NEUROLOGIC: no focal neurologic deficits PSYCH: appropriate, normal affect, polite - Physical Exam Vital Signs Temp Pulse Resp BP Pulse Ox 97.9 F 44 L 16 109/62 99 02/24/19 06:00 02/24/19 06:00 02/24/19 06:00 02/24/19 06:00 02/24/19 03:15 Oxygen Delivery Method Room Air Weight: 172 lb 13.478 oz Body Mass Index (BMI) 24.0 Intake and Output for Last 24 Hours 02/22/19 02/23/19 02/24/19 23:59 23:59 23:59 Intake Total 880 / 880 300 / 300 Output Total 150 / 150 Balance 730 / 730 300 / 300 Laboratory Tests Past 24 Hrs 02/23/19 02/23/19 02/23/19 17:50 18:40 18:40 WBC 5.6 RBC 4.28 L Hgb 13.2 Hct 38.7 L MCV 90.4 MCH 30.8 MCHC 34.1 RDW 13.0 RDW Differential 42.5 Plt Count 210 MPV 10.0 Immature Gran % (Auto) 0.000 Neut % (Auto) 47.1 Lymph % (Auto) 33.0 [place]igo % (Auto) 12.7 H Eos % (Auto) 6.1 H Baso % (Auto) 1.1 H Absolute Neuts (auto) 2.6 Absolute Lymphs (auto) 1.84 Total Counted Not Reportable Differential Comment SCANNED Sodium 141 Potassium 3.9 Chloride 107 Carbon Dioxide 28.0 Anion Gap 6 BUN 18 Creatinine 1.05 Estim Creat Clear Calc 100.60 Est GFR (MDRD) Af Amer 101 Est GFR (MDRD) Non-Af 83 BUN/Creatinine Ratio 17.1 Glucose 113 H Calcium 8.7 Total Bilirubin 0.40 AST 23 ALT 20 Alkaline Phosphatase 65 Total Protein 7.5 Albumin 4.1 Globulin 3.4 Albumin/Globulin Ratio 1.2 Urine Opiates Screen POSITIVE H Urine Methadone Screen NEGATIVE Ur Barbiturates Screen NEGATIVE Ur Phencyclidine Scrn NEGATIVE Ur Amphetamines Screen NEGATIVE U Methamphetamin-MDMA NEGATIVE U Benzodiazepines Scrn NEGATIVE Urine Cocaine Screen POSITIVE H U Cannabinoids Screen NEGATIVE Ur Drug Screen Comment Ethyl Alcohol Hepatitis A IgM Ab Hepatitis A Ab Total Hep Bs Antigen Hep B Core Total Ab Hep B Core IgM Ab HIV 1&2 Antibody 02/23/19 02/23/19 02/23/19 18:40 18:40 18:40 WBC RBC Hgb Hct MCV MCH MCHC RDW RDW Differential Plt Count MPV Immature Gran % (Auto) Neut % (Auto) Lymph % (Auto) Vigo % (Auto) Eos % (Auto) Baso % (Auto) Absolute Neuts (auto) Absolute Lymphs (auto) Total Counted Differential Comment Sodium Potassium Chloride Carbon Dioxide Anion Gap BUN Creatinine Estim Creat Clear Calc Est GFR (MDRD) Af Amer Est GFR (MDRD) Non-Af BUN/Creatinine Ratio Glucose Calcium Total Bilirubin AST ALT Alkaline Phosphatase Total Protein Albumin Globulin Albumin/Globulin Ratio Urine Opiates Screen Urine Methadone Screen Ur Barbiturates Screen Ur Phencyclidine Scrn Ur Amphetamines Screen U Methamphetamin-MDMA U Benzodiazepines Scrn Urine Cocaine Screen U Cannabinoids Screen Ur Drug Screen Comment Ethyl Alcohol 3.0 Hepatitis A IgM Ab Pending Hepatitis A Ab Total Pending Hep Bs Antigen Pending Hep B Core Total Ab Pending Hep B Core IgM Ab Pending HIV 1&2 Antibody Non-Reactive Medical Necessity - Tobacco Use Smoking Status: Current every day smoker Tobacco Use: Cigarettes Assessment/Plan All Active Problems (Last Reviewed 01/08/19 @ 04:49 by Tony Umana MD) Opioid withdrawal (Acute) Impressions 1. Acute opiate withdrawal 2. Opiate dependence 3. Cocaine use (crack) 4. Tobacco dependence Denies IVDA. Hepatitis panel is pending continue the [facility] protocol for acute opiate withdrawal Plans on inpatient tx at [place] Code Visit Inpatient E&M: 91619 Subs Hosp L2
[2019-02-24] MEDS: chlordiazePOXIDE 25 MG Capsule PO (09:44)
[2019-02-24] MEDS: cloNIDine HCl 0.1 MG Tablet PO (09:44)
[2019-02-24] MEDS: Methocarbamol 750 MG Tablet PO (09:45)
[2019-02-24] MEDS: Ibuprofen 600 MG Tablet PO (09:45)
--- NOTE | 2019-02-24 10:48 | NURSING ---
PT RESTING QUIETLY IN BED, EYES CLOSED, RESP EASY
[2019-02-24] MEDS: traZODone 50 MG Tablet PO (22:11)
[2019-02-25] VITALS (8 sets, daily range): BP systolic 101–150; BP diastolic 60–92; PULSE 52–66; RESP 14–18; TEMP 36.4–37.2; O2SAT 98–100
[2019-02-25] MEDS: Buprenorphine HCl 2 MG TAB.SUBL SL ×3 (01:48→22:41)
[2019-02-25 08:10] LABS: HEPATITIS B SURFACE AG Negative (Negative); Hepatitis A AB, Total Negative (Negative); Hepatitis A IgM Antibody Negative (Negative); Hepatitis B Core AB IgM Negative (Negative); Hepatitis C Ab <0.1 s/co ratio (0.0-0.9)
[2019-02-25 11:05] LABS: Hep B Surface Antibodies Non Reactive (.)
[2019-02-25 11:08] LABS: Hepatitis B Core Ab Total Positive (Negative)
[2019-02-25] MEDS: cloNIDine HCl 0.1 MG Tablet PO (14:42)
[2019-02-25] MEDS: chlordiazePOXIDE 25 MG Capsule PO (14:42)
--- NOTE | 2019-02-25 17:14 | CHAPLAIN ---
Type of Pastoral Visit _x__ Initial Visit ___ Follow-up Visit ___ On-call Visit ___ General Patient Visit ___ Spiritual Assessment ___ Family Conference ___ Bereavement ___ Rapid Response ___ Code Blue ___ Other (describe below) Pastoral Care Referral From _x__ Patient ___ Family ___ Nurse ___ Physician ___ [place] ___ Casing Cooker _x__ Other (describe below) Sacrament/Intervention _x__ Active listening ___ Anointing ___ Amish ___ Bereavement ___ Communion ___ [place] exploration ___ ___ Life review _x__ Prayer ___ Reconciliation ___ Sacrament of Sick _x__ Supportive presence ___ Wedding ___ Other (describe below) Pastoral Comments patient is actively making phone calls for placement; pt describes his situation and past failure at maintaining sobriety; pt is welcoming of support and prayer;
--- NOTE | 2019-02-25 20:15 | PN_ITS ---
Subjective: Afebrile with stable vital signs He has no complaints today. He has made several phone calls and plans on going inpatient to be treated for chronic alcohol dependence. The hepatitis panel is positive for hepatitis B core total antibody and negative for hepatitis B core IgM antibody. Hepatitis B surface antigen is negative and the hepatitis A antibodies are negative. Hep C antibody is negative. HIV was nonreactive. He tells me that he has never been told he had Hep B. Hepatitis panel was not checked on his last admission to [facility]. He denies any IV drug use and has not had a tattoo for 13 years. His girlfriend was also a drug abuser but she got clean when she was and they have split up. He denies having sex with anyone else since they have split up and tells me that she was tested for hepatitis when she was and was negative. He has never had Hep B vaccine. Objective: PHYSICAL EXAM: GENERAL: alert, oriented X 3, Cooperative, NAD ORAL: moist mucosa, no mucosal lesions NECK: No JVD, supple, trachea midline LUNGS: CTA, symmetric chest expansion HEART: RRR, Normal S1 and S2, no rub, no gallop ABDOMEN: soft, NT, ND, BS present, no guarding with palpation EXTREMITIES: no edema, no cyanosis, no calf tenderness SKIN: No rashes, no breakdown NEUROLOGIC: no focal neurologic deficits PSYCH: appropriate, normal affect, pleasant - Physical Exam Vital Signs Temp Pulse Resp BP Pulse Ox 97.7 F L 66 18 101/68 98 02/25/19 18:00 02/25/19 18:00 02/25/19 18:00 02/25/19 18:00 02/25/19 17:54 Oxygen Delivery Method Room Air Weight: 172 lb 13.478 oz Body Mass Index (BMI) 24.0 Intake and Output for Last 24 Hours 02/23/19 02/24/19 02/25/19 23:59 23:59 23:59 Intake Total 880 / 880 1180 / 1180 1170 / 1170 Output Total 150 / 150 Balance 730 / 730 1180 / 1180 1170 / 1170 Laboratory Tests Past 24 Hrs 02/23/19 18:40 Hepatitis A IgM Ab Negative Hepatitis A Ab Total Negative Hep Bs Antigen Negative Hep B Core Total Ab Positive H Hep B Core IgM Ab Negative Hepatitis C Ab Confirm <0.1 Hepatitis C Comment Comment Medical Necessity - Tobacco Use Smoking Status: Current every day smoker Tobacco Use: Cigarettes Assessment/Plan All Active Problems (Last Reviewed 01/08/19 @ 04:49 by Tony Umana MD) Opioid withdrawal (Acute) Impressions 1. Acute opiate withdrawal 2. Opiate dependence 3. Cocaine use (crack) 4. Tobacco dependence 5. Hepatitis B core antibody positive with a negative hepatitis B surface antigen and a negative hep B core IgM antibody. This is likely an old infection and not recent. He is not contagious. I told him to discuss this with his PCP. Denies IVDA. Hepatitis panel is pending continue the [facility] protocol for acute opiate withdrawal Plans on inpatient tx at [place] Code Visit Inpatient E&M: 04261 Subs Hosp L2
[2019-02-25] MEDS: traZODone 50 MG Tablet PO (22:41)
--- NOTE | 2019-02-26 07:31 | DCINST_ITS ---
- Discharge Diagnoses Current Active Problems: Current Active and Chronic Problems (Last Reviewed 01/08/19 @ 04:49 by Tony Umana MD) Fentanyl use disorder, severe (Chronic) Crack cocaine use (Chronic) Tobacco use (Chronic) Anxiety (Chronic) You will use the following diet at home:: No restrictions Your food should be the consistency of: Regular Your liquids should be the consistency of: Regular/Thin Discharge Activity: Return to Normal Activity Call your doctor if you observe: Fever of 101 or Higher, Inability to have a bowel movement, Shortness of breath, Dizziness, Fainting spells, Swelling in the ankles, Chest pain, - - yellow skin or eyes, chronic fatigue Instructions: Understanding Hepatitis B (HBV) Additional Instructions: You have had Hepatitis B in the past. You are not currently contagious. Hepatitis B can lead to chronic liver disease. You may want to consider seeing an Infectious disease doctor. Hepatitis is spread through sex and blood. Wear condoms and do not share needles if you ever use them. There are other kinds of Hepatitis. Hepatitis C is very common in the drug community. If you contract another type of hepatitis in addition to Hep B the risk of chronic liver disease, cirrhosis and even liver cancer goes up significantly. Allergies/Adverse Reactions: Allergies No Known Allergies Allergy (Verified 01/07/19 23:52) Medications to take at Discharge NK 01/07/19 Primary Care Physician: Care Physician,No Primary [Primary Care Provider] - Test Results: Test results from this visit will be discussed in further detail at your follow- up appointment, if applicable. Proposed Discharge Date: 02/26/19
--- NOTE | 2019-02-26 07:36 | DS.PCM_ITS ---
Discharge Date and Diagnosis Date of Admission: 02/23/19 Date of Discharge: 02/26/19 - Primary Discharge Diagnosis Acute Opiate withdrawal - Secondary Discharge Diagnosis Chronic Problems (Last Reviewed 01/08/19 @ 04:49 by Tony Umana MD) History of hepatitis B (Chronic) Fentanyl use disorder, severe (Chronic) Crack cocaine use (Chronic) Tobacco use (Chronic) Anxiety (Chronic) PTSD - suspected Hospital Course and Treatment Imaging Results: Laboratory Tests 02/23/19 02/23/19 02/23/19 Range/Units 18:40 18:40 18:40 WBC (4.4-11.0) K/mm3 RBC (4.6-6.2) M/mm3 Hgb (13.0-16.5) g/dl Hct (40-54) % MCV (80-94) fL MCH (27.0-32.0) pg MCHC (32-36) g/gl RDW (11.6-14.6) % RDW Differential (35.1-43.9) fl Plt Count (150-450) K/mm3 MPV (6.2-12.0) fl Immature Gran % (Auto) (0.0-0.9) % Neut % (Auto) (47-70) % Lymph % (Auto) (19-41) % Allen % (Auto) (0-10) % Eos % (Auto) (0-5) % Baso % (Auto) (0-1) % Absolute Neuts (auto) (2.0-7.7) X10^3/uL Absolute Lymphs (auto) (0.83-4.51) X10^3/ul Total Counted Differential Comment Sodium (136-145) mmol/L Potassium (3.5-5.1) mmol/L Chloride (98-107) mmol/L Carbon Dioxide (21.0-32.0) mmol/L Anion Gap (5-15) BUN (7-18) mg/dL Creatinine (0.70-1.30) mg/dL Estim Creat Clear Calc ml/min Est GFR (MDRD) Af Amer (>60) mL/min Est GFR (MDRD) Non-Af (>60) mL/min BUN/Creatinine Ratio (10-20) RATIO Glucose (74-106) mg/dL Calcium (8.5-10.1) mg/dL Total Bilirubin (0.20-1.00) mg/dL AST (15-37) U/L ALT (16-61) U/L Alkaline Phosphatase (45-117) U/L Total Protein (6.4-8.2) g/dL Albumin (3.2-5.0) g/dL Globulin (2.2-4.2) g/dL Albumin/Globulin Ratio (0.9-2.4) RATIO Urine Opiates Screen (< 300 ng/mL) Urine Methadone Screen (< 300 ng/mL) Ur Barbiturates Screen (< 200 ng/mL) Ur Phencyclidine Scrn (< 25 ng/mL) Ur Amphetamines Screen (<1000 ng/mL) U Methamphetamin-MDMA (< 500 ng/mL) U Benzodiazepines Scrn (< 200 ng/mL) Urine Cocaine Screen (< 300 ng/mL) U Cannabinoids Screen (< 50 ng/mL) Ur Drug Screen Comment Ethyl Alcohol 3.0 mg/dL Hepatitis A IgM Ab Negative (Negative) Hepatitis A Ab Total Negative (Negative) Hep Bs Antigen Negative (Negative) Hep B Core Total Ab Positive H (Negative) Hep B Core IgM Ab Negative (Negative) Hepatitis C Ab Confirm <0.1 (0.0-0.9) s/co ratio Hepatitis C Comment Comment (.) HIV 1&2 Antibody Non-Reactive (Nonreactive) 02/23/19 02/23/19 02/23/19 Range/Units 18:40 18:40 17:50 WBC 5.6 (4.4-11.0) K/mm3 RBC 4.28 L (4.6-6.2) M/mm3 Hgb 13.2 (13.0-16.5) g/dl Hct 38.7 L (40-54) % MCV 90.4 (80-94) fL MCH 30.8 (27.0-32.0) pg MCHC 34.1 (32-36) g/gl RDW 13.0 (11.6-14.6) % RDW Differential 42.5 (35.1-43.9) fl Plt Count 210 (150-450) K/mm3 MPV 10.0 (6.2-12.0) fl Immature Gran % (Auto) 0.000 (0.0-0.9) % Neut % (Auto) 47.1 (47-70) % Lymph % (Auto) 33.0 (19-41) % Allen % (Auto) 12.7 H (0-10) % Eos % (Auto) 6.1 H (0-5) % Baso % (Auto) 1.1 H (0-1) % Absolute Neuts (auto) 2.6 (2.0-7.7) X10^3/uL Absolute Lymphs (auto) 1.84 (0.83-4.51) X10^3/ul Total Counted Not Reportable Differential Comment SCANNED Sodium 141 (136-145) mmol/L Potassium 3.9 (3.5-5.1) mmol/L Chloride 107 (98-107) mmol/L Carbon Dioxide 28.0 (21.0-32.0) mmol/L Anion Gap 6 (5-15) BUN 18 (7-18) mg/dL Creatinine 1.05 (0.70-1.30) mg/dL Estim Creat Clear Calc 100.60 ml/min Est GFR (MDRD) Af Amer 101 (>60) mL/min Est GFR (MDRD) Non-Af 83 (>60) mL/min BUN/Creatinine Ratio 17.1 (10-20) RATIO Glucose 113 H (74-106) mg/dL Calcium 8.7 (8.5-10.1) mg/dL Total Bilirubin 0.40 (0.20-1.00) mg/dL AST 23 (15-37) U/L ALT 20 (16-61) U/L Alkaline Phosphatase 65 (45-117) U/L Total Protein 7.5 (6.4-8.2) g/dL Albumin 4.1 (3.2-5.0) g/dL Globulin 3.4 (2.2-4.2) g/dL Albumin/Globulin Ratio 1.2 (0.9-2.4) RATIO Urine Opiates Screen POSITIVE H (< 300 ng/mL) Urine Methadone Screen NEGATIVE (< 300 ng/mL) Ur Barbiturates Screen NEGATIVE (< 200 ng/mL) Ur Phencyclidine Scrn NEGATIVE (< 25 ng/mL) Ur Amphetamines Screen NEGATIVE (<1000 ng/mL) U Methamphetamin-MDMA NEGATIVE (< 500 ng/mL) U Benzodiazepines Scrn NEGATIVE (< 200 ng/mL) Urine Cocaine Screen POSITIVE H (< 300 ng/mL) U Cannabinoids Screen NEGATIVE (< 50 ng/mL) Ur Drug Screen Comment Ethyl Alcohol mg/dL Hepatitis A IgM Ab (Negative) Hepatitis A Ab Total (Negative) Hep Bs Antigen (Negative) Hep B Core Total Ab (Negative) Hep B Core IgM Ab (Negative) Hepatitis C Ab Confirm (0.0-0.9) s/co ratio Hepatitis C Comment (.) HIV 1&2 Antibody (Nonreactive) none Operations: None Procedures: None Summary of Care Provided: The patient is a 38-year-old male with a past medical history of tobacco dependence, anxiety, opiate dependence (snorts 1-3 GM daily) and crack usage who presented to the [facility] office at [facility] on 02/23/2019 requesting inpatient admission for medical stabilization for acute opiate withdrawal. He had recently had inpatient treatment at [facility] from 01/07/2019 to 01/10/2019 for acute opiate withdrawal. He was transitioned to an inpt program in [facility] but spent only 1 day there. He tells me there were bed bugs in the house and he did not like it there. At the time of admission he complained of abdominal cramping, generalized body aches and pains, rhinorrhea, fatigue, restless leg, sweating and yawning. CBC and CMP were unremarkable. Urine tox screen was positive for opiates and c ocaine. He was admitted to the hospital and the [facility] protocol for acute opiate withdrawal was initiated. He was started on a buprenorphine taper. The detox was uneventful. Hepatitis panel is + for Hep B core AB. HepB core IGM AB is negative. Hep BsAG is negative. He was provided with printed information about Hep B. He was advised to use condoms at all times, not share needles and not donate blood. I also advised him to consult an ID doctor if he is really anxious about the potential for chronic liver disease. He is a very anxious individual and has had a lot of trauma in his life. He has many sx of PTSD. He was advised to seek counselling from a SW or a psychologist for psychotherapy for PTSD and severe anxiety. When he gets anxious it is a trigger for wanting to use. He is going to a sober living house at [place]. PHYSICAL EXAM: GENERAL: alert, oriented X 3, Cooperative, NAD ORAL: moist mucosa, no mucosal lesions NECK: No JVD, supple, trachea midline LUNGS: CTA, symmetric chest expansion HEART: RRR, Normal S1 and S2, no rub, no gallop ABDOMEN: soft, NT, ND, BS present, no guarding with palpation EXTREMITIES: no edema, no cyanosis, no calf tenderness SKIN: No rashes, no breakdown NEUROLOGIC: no focal neurologic deficits PSYCH: appropriate, very anxious/restless, pleasant This note was generated with [employer] dictation software. It may contain incorrect words, spelling, and punctuation that were not noted in checking the note before signing. - Physical Exam Vital Signs Temp Pulse Resp BP Pulse Ox 98 F 53 L 16 118/75 98 02/25/19 22:30 02/25/19 22:30 02/25/19 22:30 02/25/19 22:30 02/25/19 17:54 Oxygen Delivery Method Room Air Weight: 172 lb 13.478 oz Body Mass Index (BMI) 24.0 Intake and Output for Last 24 Hours 02/24/19 02/25/19 02/26/19 23:59 23:59 23:59 Intake Total 1180 / 1180 1170 / 1170 500 / 500 Balance 1180 / 1180 1170 / 1170 500 / 500 Laboratory Tests Past 24 Hrs 02/23/19 18:40 Hepatitis A IgM Ab Negative Hepatitis A Ab Total Negative Hep Bs Antigen Negative Hep B Core Total Ab Positive H Hep B Core IgM Ab Negative Hepatitis C Ab Confirm <0.1 Hepatitis C Comment Comment Discharge Activity: Return to Normal Activity Call your doctor if you observe: Fever of 101 or Higher, Inability to have a bowel movement, Shortness of breath, Dizziness, Fainting spells, Swelling in the ankles, Chest pain, - - yellow skin or eyes, chronic fatigue Home Medications: Medications to take at Discharge NK 01/07/19 Primary Care Physician: Care Physician,No Primary [Primary Care Provider] - Patient Instructions: Understanding Hepatitis B (HBV) Disposition: Inpt Rehab Unit/Facility - drug rehab Minutes spent on discharge:: 35 Patient Condition:: Good Medical Necessity - Tobacco Use Smoking Status: Current every day smoker Tobacco Use: Cigarettes Meaningful Use Info Meaningful Use Diagnoses (Choose all that apply): None applicable Code Visit Inpatient E&M: 32208 Disch Hosp
[2019-02-26 07:55] VITALS: BP 111/84; PULSE 67; RESP 16; TEMP 36.3; O2SAT 100
== END 2019-02-26 08:05 | disposition home or self-care (01) | DRG 773 ==
PROVIDERS: Admitting Provider Family Medicine; Referring Provider Family Medicine; Visit Provider Internal Medicine
DX: F11.23 Opioid dependence with withdrawal (principal); Z59.0 Homelessness; F17.210 Nicotine dependence, cigarettes, uncomplicated; F14.90 Cocaine use, unspecified, uncomplicated; Z86.19 Personal history of other infectious and parasitic diseases; F41.9 Anxiety disorder, unspecified; F43.10 Post-traumatic stress disorder, unspecified
CPT/HCPCS: 80053; 80307; 80320; 85025; 86703; 86704; 86705; 86706; 86708; 86709; 86803; 87340; 99406; G0480